=== PATIENT | male | born 1995 | race Caucasian/White ===

== ENCOUNTER 2021-05-05 21:31 | Emergency (ER) | payer OTHER ==
[~2021-05-05] VITALS: Ht 185.4 cm; Wt 74.8 kg
[2021-05-05 21:50] VITALS: BP_SYST 153
--- NOTE | 2021-05-05 21:50 | NUR ---
PT TOO REMAIN IN THE ER LOBBY UNTIL ER BED BECOMES AVAILABLE.
--- NOTE | 2021-05-05 22:20 | NUR ---
PT TO CHAIR 1 FOR EVALUATION.
--- NOTE | 2021-05-05 22:30 | NUR ---
pt came to er for complaints of lower lip edema x1.5 hours.pt states he didnt change anything in his diet or meds. states he had a staph infection in the smae spot 6 years ago and he had it drained. 0/10 pain now, pt states he is itchy now
[2021-05-05] MEDS ORDERED: LORA10TA7 PO (23:07)
[2021-05-05] MEDS ORDERED: CLIN-22 PO (23:07)
[2021-05-05] MEDS ORDERED: LORATADINE 10 MG TABLET PO ONE (23:15)
--- NOTE | 2021-05-05 23:15 | NUR ---
DR. DO ATTEMPTED TO ORDER CLINDAMYCIN 300MG PO AND HIS EMAR PROGRAM FAILED. DR. DO ORDERED ABOVE LISTED MED AND IT WAS ADMINISTERED PER MD ORDER. SEE PROGRESS NOTES.
[2021-05-05] MEDS ORDERED: CLINDAMYCIN HCL 150 MG CAPSULE ONE (23:16)
[2021-05-05 23:32] VITALS: BP_SYST 153
--- NOTE | 2021-05-05 23:32 | NUR ---
Patient given written and verbal discharge instructions and verbalizes understanding. DR. ERNESTINA HIDALGO MD discussed with patient the results and treatment provided. Patient in stable condition. ID arm band removed. Rx PER MD. Patient educated on pain management and to follow up with PMD. Pain Scale Opportunity for questions provided and answered. Medication side effect fact sheet provided.
== END 2021-05-05 23:32 | disposition home or self-care (01) ==
LOC: SED 21:31
DX: K13.0 Diseases of lips (principal); Z88.1 Allergy status to other antibiotic agents
CPT/HCPCS: 99283